=== PATIENT | male | born 1955 | race Caucasian/White ===

== ENCOUNTER 2017-12-26 05:18 | Emergency (ER) | payer OTHER ==
[~2017-12-26] VITALS: Ht 172.7 cm; Wt 97.5 kg
[~2017-12-26 05:18] MED LIST: BYSTOLIC10 MG; LOTREL 5-20 MG1 CAP; MAXIDEX15 ML; ZANTAC150 M3
== END 2017-12-26 11:05 | disposition home or self-care (01) ==
LOC: ER 05:18
DX: K29.70 Gastritis, unspecified, without bleeding (principal); K80.51 Calculus of bile duct without cholangitis or cholecystitis with obstruction

== ENCOUNTER 2018-02-18 09:59 | Emergency (ER) | payer OTHER ==
[~2018-02-18] VITALS: Ht 172.7 cm; Wt 97.5 kg
[2018-02-18] MEDS ORDERED: AMLODIPINE BESY10 MG PO (10:16)
== END 2018-02-18 15:20 | disposition home or self-care (01) ==
LOC: ER 09:59
DX: M54.89 Other dorsalgia (principal)

== ENCOUNTER 2023-09-01 10:53 | Day surgery (SDC) | payer OTHER ==
[~2023-09-01] VITALS: Ht 172.7 cm; Wt 96.2 kg
[~2023-09-01 10:53] MED LIST changes: +AMLODIPINE BESY10 MG PO; +CHLORTHALIDONE25 MG PO; +CLONAZEPAM1 MG PO; +LISINO PO; +POTASS PO; +SERTRALINE20 MG/1 ML PO; +TAMS0.4C PO
[2023-09-01] MEDS ORDERED: KETO10TA2 PO (13:27)
[2023-09-01] MEDS ORDERED: TRAMADOL HCL50 MG PO (13:27)
[2023-09-01] MEDS ORDERED: NEURONTIN300 MG PO (13:27)
[2023-09-01] MEDS ORDERED: TYLENOL ARTHRI650 MG PO (13:27)
[2023-09-01] MEDS ORDERED: MIRALAX17 GM PO (13:27)
== END 2023-09-01 19:25 | disposition home or self-care (01) ==
LOC: CIR.AMB 10:53
PROVIDERS: ATTEND Surgery
DX: K43.6 Other and unspecified ventral hernia with obstruction, without gangrene (principal); Z20.822 Contact with and (suspected) exposure to COVID-19; Z88.8 Allergy status to other drugs, medicaments and biological substances; E78.5 Hyperlipidemia, unspecified; I10 Essential (primary) hypertension
CPT/HCPCS: 49594; C1781

== ENCOUNTER 2025-08-08 06:00 | Day surgery (SDC) | payer OTHER ==
[~2025-08-08 06:00] MED LIST changes: +KETO10TA2 PO; +MIRALAX17 GM PO; +NEURONTIN300 MG PO; +TRAMADOL HCL50 MG PO; +TYLENOL ARTHRI650 MG PO
[2025-08-08] MEDS ORDERED: BUPIVACAINE HCL/MPF 0.5% 30ML VIAL ONE ×2 (06:52→08:04)
[2025-08-08] MEDS ORDERED: CEFAZOLIN SODIUM 1,000 MG VIAL ONE (07:04)
[2025-08-08] MEDS ORDERED: TYLENOL ARTHRI650 MG PO (07:50)
[2025-08-08] MEDS ORDERED: MIRALAX17 GM PO (07:50)
[2025-08-08] MEDS ORDERED: KETO10TA2 PO (07:50)
[2025-08-08] MEDS ORDERED: TRAMADOL HCL50 MG PO (07:50)
[2025-08-08] MEDS ORDERED: KETOROLAC TROMETHAMINE 30 MG VIAL ONE (08:43)
[2025-08-08] MEDS ORDERED: SUGAMMADEX SODIUM 200 MG/2 ML VIAL IV ONE (08:46)
== END 2025-08-08 13:45 | disposition home or self-care (01) ==
LOC: CIR.AMB 06:00
PROVIDERS: ATTEND Surgery
DX: K40.20 Bilateral inguinal hernia, without obstruction or gangrene, not specified as recurrent (principal)
CPT/HCPCS: 49650; C1781